=== PATIENT | female | born 1990 | race Caucasian/White ===

== ENCOUNTER 2018-01-09 19:41 | Emergency (ER) | payer BC, SELFPAY ==
[2018-01-09 19:41] VITALS: BP 131/66; PULSE 98; RESP 16; TEMP 37.1; O2SAT 99; BMI 23.8
--- NOTE | 2018-01-09 21:45 | US_ITS ---
STUDY: VENOUS DOPPLER ULTRASOUND - RIGHT LOWER EXTREMITY REASON FOR EXAM: Female, 27 years old. Pain. . TECHNIQUE: Ultrasound evaluation of the deep vein system to include raymundo-scale imaging and compression was performed. Raymundo-scale imaging and Doppler sonographic evaluation, including duplex spectral analysis and qualitative color flow sonography, was performed. COMPARISON: None. FINDINGS: Common Femoral Vein: Normal compression, spontaneity and augmentation. Normal color Doppler. Common Femoral Vein/Greater Saphenous Junction: Normal compression, spontaneity and augmentation. Normal color Doppler. Deep Femoral Vein: Normal compression, spontaneity and augmentation. Normal color Doppler. Femoral Proximal: Normal compression, spontaneity and augmentation. Normal color Doppler. Femoral Middle: Normal compression, spontaneity and augmentation. Normal color Doppler. Femoral Distal: Normal compression, spontaneity and augmentation. Normal color Doppler. Popliteal Vein: Normal compression, spontaneity and augmentation. Normal color Doppler. Posterior Tibial Vein: Normal compression, spontaneity and augmentation. Normal color Doppler. Peroneal Vein: Normal compression, spontaneity and augmentation. Normal color Doppler. There is no demonstrated deep venous thrombosis. US/Venous Duplex Imag/Limited/Uni IMPRESSION: Normal venous Doppler ultrasound of the lower extremity. Electronically Signed: Joce Hilton MD at 22:37 EST , Service support ,
--- NOTE | 2018-01-09 22:19 | ED.VISSUMM ---
- ER Visit Summary Date of Service: 01/09/18 Chief Complaint: Right knee pain History of Present Illness: The patient is a 27 F who is 25 weeks . This is her first baby. Patient took a car trip yesterday but states that she was up walking every hour and a half or so. She started to have some pain behind her right knee. No known trauma. Is not catching. No significant swelling. She notes some paresthesias in it. Dr. Jacobson her BUS TROLLEY AND TAXI INSTRUCTOR sent her to the ER for evaluation of DVT. Physical Examination: Afebrile vital signs are stable Gen: Well-nourished well-developed Head: Normocephalic atraumatic Eyes: Perrl EOMI ENT: TMs clear no rhinorrhea moist mucous membranes Neck: Supple no lymphadenopathy no JVD nontender CVS: Regular rate rhythm no murmurs normal S1-S2 Respiratory: No distress clear to auscultation bilaterally chest nontender Abdomen: Soft nontender nondistended normal bowel sounds no masses Back: Nontender Extremity: Nontender no edema Skin: Normal color no rash Neuro: alert orientated ?3 CN II-XII intact normal strength sensation reflexes gait cerebellar Psych: Normal affect normal mood Test Results: Duplex ultrasound was negative for DVT Emergency Department Course and Treatment: Reassurance was given. Patient to use Tylenol. Follow-up with BUS TROLLEY [employer] TAXI INSTRUCTOR as scheduled return if worsening Impression: 1. Right knee pain 2. Third trimester This note was generated with [employer] dictation software. It may contain incorrect words, spelling, and punctuation that were not noted in review of the chart prior to signing ED Disposition - Plan for ED Patient: Disposition: Home or Assisted Living Chief Complaint: Lower Extremity Injury Instructions: ED Knee Pain [facility] Referrals: Linette Jacobson MD [Primary Care Provider] - Keep [facility] appointment
[2018-01-09 22:29] VITALS: BP 132/78; PULSE 78; RESP 17; O2SAT 98
== END 2018-01-09 22:30 | disposition home or self-care (01) ==
PROVIDERS: Emergency Provider Emergency Medicine; Family Provider Obstetrics & Gynecology; PCP Obstetrics & Gynecology
DX: O26.892 Other specified pregnancy related conditions, second trimester (principal); M25.561 Pain in right knee; Z3A.25 25 weeks gestation of pregnancy
CPT/HCPCS: 93971; 99282

== ENCOUNTER → 2018-01-25 15:39 | Outpatient (CLI) | payer BC, SELFPAY ==
[2018-01-25 16:56] LABS: Absolute Lymphocyte Count 1.96 X10^3/ul (0.83-4.51); Absolute Neutrophil Count 8.1 X10^3/uL (2.0-7.7); Basophil# 0.03 X10^3/uL; Basophil% 0.3 % (0-1); Eosinophil# 0.18 X10^3/uL; Eosinophils% 1.6 % (0-5); Hematocrit 34.2 % (37-47); Hemoglobin 11.5 g/dl (12.0-15.0); Lymphocyte # 1.96 X10^3/ul (4.0); Lymphocyte % 17.1 % (19-41); Mean Corp Hgb Conc 33.6 g/gl (32-36); Mean Corpuscular Hgb 32.3 pg (27.0-32.0); Mean Corpuscular Volume 96.1 fL (81-99); Mean Platelet Vol. 9.6 fl (6.2-12.0); Monocyte# 1.06 X10^3/uL; Monocyte% 9.3 % (0-10); Neutrophil # 8.14 X10^3/uL (2.7-7.7); Neutrophil % 71.2 % (47-70); POSITIVE COUNT NO; POSITIVE DIFFERENTIAL NO; POSITIVE MORPHOLOGY NO; Platelet Count 271 K/mm3 (150-450); RBC Distribution Width CV 13.1 % (11.6-14.6); RBC Distribution Width SD 43.6 fl (35.1-43.9); Red Blood Count 3.56 M/mm3 (4.2-5.4); White Blood Count 11.4 K/mm3 (4.4-11.0)
[2018-01-25 16:59] LABS: Glucose Challenge Gest 1H 50g 104 mg/dL (70-140)
== END ==
PROVIDERS: Visit Provider Obstetrics & Gynecology
DX: Z34.90 Encounter for supervision of normal pregnancy, unspecified, unspecified trimester (principal)
CPT/HCPCS: 36415; 82950; 85025; 86850; 86900

== ENCOUNTER → 2018-01-25 18:56 | Outpatient (CLI) | payer BC, SELFPAY | PROVIDERS: Visit Provider Obstetrics & Gynecology | DX: Z34.90 Encounter for supervision of normal pregnancy, unspecified, unspecified trimester (principal) | CPT/HCPCS: 87086 ==

== ENCOUNTER 2018-03-06 10:29 | Emergency (ER) | payer BC, SELFPAY ==
[2018-03-06 10:30] VITALS: BP 115/69; PULSE 117; RESP 20; TEMP 37; O2SAT 96; BMI 25.0
--- NOTE | 2018-03-06 10:55 | VDLE_ITS ---
Reason For Study: pain Procedure LEFT Exam performed portable in ED. GSV is normal. The exam was diagnostic. CFV is compressible, spontaneous, phasic, A preliminary report was called and/or faxed competent, and demonstrates normal to Dr. Woodson. augmentation. FV is compressible, spontaneous, phasic, competent and demonstrates normal augmentation. POP V is compressible, spontaneous, phasic, competent and demonstrates normal augmentation. T/P Trunk is compressible. PTV is compressible. LT PerV is compressible. Interpretation Summary Deep veins of the left lower extremity are patent and compressible segmentally. There is no evidence of left lower extremity deep vein thrombosis. Valvular competence appears intact within the proximal deep venous system on the left . The left greater saphenous vein appears patent and compressible segmentally. Ordering Physician: Dean Woodson Performed By: Jovany Alberts RVT
--- NOTE | 2018-03-06 10:56 | ED.VISSUMM ---
- ER Visit Summary Date of Service: 03/06/18 Chief Complaint: Left behind the knee discomfort History of Present Illness: The patient is a 27 F history 3 weeks Ab0. Her due date is . Patient states she has had mild discomfort behind her left knee since last night. When it persisted she called her ELDER ASSISTANT Dr. Rashad Dick whose office Center in to have a ultrasound done. She has never had a DVT or PE before. She denies any chest pain or shortness of breath. She had a similar episode in her right leg 1-2 months ago and had a negative ultrasound of that leg at that time. She denies any calf pain or swelling. No hemoptysis. Physical Examination: Very well-appearing young female. Vital signs are stable afebrile. Pulse ox 97% on room air no signs of hypoxia. No distress. H EENT exam unremarkable neck nontender lungs clear to auscultation bilaterally. Heart regular rhythm no murmur abdomen is soft. Nontender tender. Normal bowel sounds. She does have a gravid uterus. Consistent with her dates. It is nontender. She is moving all 4 extremities. They are neurovascularly intact. She has very minimal tenderness behind her left knee along the hamstring tendon. There is no edema or cords or calf is nontender the left foot is neurovascularly intact. Right lower extremities unremarkable both lower legs are the same size. No edema. Normal range of motion. Otherwise exam unremarkable. Test Results: Noninvasive study of the left leg shows no DVT. Emergency Department Course and Treatment: Repeat exam patient is doing well at 1130. She denied discussed her negative test results she will be discharged to home. Treatment Plan: Ice to the area. Tylenol for pain. Disposition: Discharge Impression: Lower extremity pain by the knee secondary to mild tendinitis Third trimester This note was generated with [employer] dictation software. It may contain incorrect words, spelling, and punctuation that were not noted in review of the chart prior to signing ED Disposition - Plan for ED Patient: Chief Complaint: Lower Extremity Injury Referrals: Linette Jacobson MD [Primary Care Provider] -
--- NOTE | 2018-03-06 10:59 | ED.DCSUM_ITS ---
- ER Visit Summary Date of Service: 03/06/18 Chief Complaint: Left behind the knee discomfort History of Present Illness: The patient is a 27 F history 3 weeks Ab0. Her due date is . Patient states she has had mild discomfort behind her left knee since last night. When it persisted she called her OBJECTIVE C DEVELOPER Dr. Rashad Dick whose office Center in to have a ultrasound done. She has never had a DVT or PE before. She denies any chest pain or shortness of breath. She had a similar episode in her right leg 1-2 months ago and had a negative ultrasound of that leg at that time. She denies any calf pain or swelling. No hemoptysis. Physical Examination: Very well-appearing young female. Vital signs are stable afebrile. Pulse ox 97% on room air no signs of hypoxia. No distress. H EENT exam unremarkable neck nontender lungs clear to auscultation bilaterally. Heart regular rhythm no murmur abdomen is soft. Nontender tender. Normal bowel sounds. She does have a gravid uterus. Consistent with her dates. It is nontender. She is moving all 4 extremities. They are neurovascularly intact. She has very minimal tenderness behind her left knee along the hamstring tendon. There is no edema or cords or calf is nontender the left foot is neurovascularly intact. Right lower extremities unremarkable both lower legs are the same size. No edema. Normal range of motion. Otherwise exam unremarkable. Test Results: Noninvasive study of the left leg shows no DVT. Emergency Department Course and Treatment: Repeat exam patient is doing well at 1130. She denied discussed her negative test results she will be discharged to home. Treatment Plan: Ice to the area. Tylenol for pain. Disposition: Discharge Impression: Lower extremity pain by the knee secondary to mild tendinitis Third trimester This note was generated with [employer] dictation software. It may contain incorrect words, spelling, and punctuation that were not noted in review of the chart prior to signing ED Disposition - Plan for ED Patient: Chief Complaint: Lower Extremity Injury Referrals: Linette Jacobson MD [Primary Care Provider] -
--- NOTE | 2018-03-06 11:31 | ED.DEP ---
ED Disposition - Plan for ED Patient: Disposition: Home or Assisted Living Chief Complaint: Lower Extremity Injury Referrals: Linette Jacobson MD [Primary Care Provider] - As Needed Additional Instructions: No blood clots seen on ultrasound. Clinically and exam this is consistent with a tendinitis or strain of the muscle basically treated with ice, Tylenol and limited Motrin. Next Should progressively improve over the next several days to a week. Follow-up with your doctor as needed.
== END 2018-03-06 11:38 | disposition home or self-care (01) ==
PROVIDERS: Emergency Provider Emergency Medicine; Family Provider Obstetrics & Gynecology; PCP Obstetrics & Gynecology
DX: O26.893 Other specified pregnancy related conditions, third trimester (principal); M76.892 Other specified enthesopathies of left lower limb, excluding foot; M79.605 Pain in left leg; Z3A.33 33 weeks gestation of pregnancy
CPT/HCPCS: 93971; 99282

== ENCOUNTER → 2018-03-13 16:23 | Outpatient (CLI) | payer BC, SELFPAY | PROVIDERS: Family Provider Obstetrics & Gynecology; PCP Obstetrics & Gynecology; Visit Provider Nurse Practitioner Women's Health | DX: Z34.90 Encounter for supervision of normal pregnancy, unspecified, unspecified trimester (principal) | CPT/HCPCS: 87086 ==

== ENCOUNTER → 2018-04-03 17:38 | Outpatient (CLI) | payer BC, SELFPAY ==
[2018-04-03 20:21] LABS: Group B Strep DNA By PCR Negative (Negative); Internal Control PASS; Probe Check PASS; Specimen Processing Control PASS
== END ==
PROVIDERS: Family Provider Obstetrics & Gynecology; PCP Obstetrics & Gynecology; Visit Provider Obstetrics & Gynecology
DX: Z34.02 Encounter for supervision of normal first pregnancy, second trimester (principal)
CPT/HCPCS: 87081; 87653

== ENCOUNTER 2018-05-01 01:05 | Inpatient (IN) | payer BC, SELFPAY ==
[2018-04-30 22:00] VITALS: BMI 26.4
[2018-05-01] MEDS: Lactated Ringers 1,000 ML 50 ML IV ×4 (01:10→10:20)
[2018-05-01 01:42] LABS: Hematocrit 39.4 % (37-47); Mean Corp Hgb Conc 35.5 g/gl (32-36); Mean Corpuscular Hgb 32.9 pg (27.0-32.0); Mean Corpuscular Volume 92.5 fL (81-99); Mean Platelet Vol. 10.3 fl (6.2-12.0); Platelet Count 271 K/mm3 (150-450); Red Blood Count 4.26 M/mm3 (4.2-5.4); White Blood Count 16.2 K/mm3 (4.4-11.0)
[2018-05-01 01:43] LABS: Scan Indicated on CBC? Y/N NO
[2018-05-01] MEDS: fentaNYL-bupivacaine (epidural) 100 ML BAG EPIDURAL ×2 (03:36→08:00)
--- NOTE | 2018-05-01 04:48 | PCM.HP.OB ---
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 Allergies amoxicillin Allergy (Mild, Verified 04/30/18 23:05) Rash Home Medications: Home Medications calcium citrate 200 mg (950 mg) tablet 500 mg PO BID tab 12/28/17 folic acid 800 mcg tablet 800 mcg PO QDAY 12/28/17 omega-3 fatty acids 1,000 mg capsule 1,000 mg PO QDAY 12/28/17 vitamin,calcium,bqhpflzb-fidh-xyvbd acid tablet 1 tab PO QDAY 12/28/17 Ferrous Sulfate 325 mg PO DAILY@0800 04/30/18 Smoking Status: Never smoker Alcohol: None Number of Fetus(es): 1 Heart Tracins moderate variability reactive no decels TOCO Analysis: q2-3 History Past Pregnancies: Past Pregnancies Delivery Date Name GA/Weeks Outcome Route Weight Gender Labor Length Anesthesia Delivery Location Provider FOB Labs: Mom's Labs & Results 05/01/18 05/01/18 01:10 01:10 WBC 16.2 H RBC 4.26 Hgb 14.0 Hct 39.4 MCV 92.5 MCH 32.9 H MCHC 35.5 RDW 13.0 RDW Differential 43.0 Plt Count 271 MPV 10.3 Blood Type A POSITIVE Antibody Screen NEGATIVE Course Did the patient receive Yes care? Labs Blood Type: A RH: POSITIVE RPR/VDRL/Syphilis Nonreactive Rubella status Immune HbSAg Negative Date Done: 10/06/17 Chlamydia Negative Gonorrhea Negative HIV/AIDS Non-Reactive Group B Strep: Negative Current Obstetrical History Gestational Diabetes No Incompetent Cervix No Infertility No IUGR No Macrosomia No Hypertension/Pre-eclampsia No Placenta Previa/Abruption No PTL/PROM No Uterine anomaly No Oligohydramnios No Polyhydramnios No Multiple gestation No Past Medical History Asthma No Diabetes No Hypertension No Heart disease No Mitral valve prolapse No Neurologic/Seizure disorder/ No Migraines Kidney disease No Liver disease No Varicosities No Clotting disorders/Hx of DVT No Thyroid Dysfunction No Other medical diseases No Psychiatric disorders Yes: hx of depression Major trauma No Abnormal PAP smear No Sleep apnea No Mammogram in the last 2 years Yes: for abnormal fatty cyst in 2016 Enter DETAILS of medical past hx of eating disorder history Social History Marital Status: Alleged father Edenilson Hx Smoking No Smoking Status Never smoker Expected Infant Delivery Method: Spontaneous Vaginal Review of Systems Constitutional: Denies: Fever, Malaise Eyes: Denies: Blurred vision, Vision Change HEENT: Denies: Head Aches, Visual Changes Cardiovascular: Denies: Chest Pain, Palpitations Respiratory: Denies: Cough, Shortness of Breath, Wheezing Gastrointestinal: Denies: Abdominal Pain, Diarrhea, Nausea, Vomiting Genitourinary: Denies: Dysuria, Hematuria Musculoskeletal: Denies: Joint Pain, Muscle pain Skin: Denies: Lesions, Rash Neurological: Denies: Blurred vision, Focal weakness, Headaches Psychiatric: Denies: Anxiety, Depression Endocrine: Denies: Heat/ Cold Intolerance Hematologic/ Lymphatic: Denies: Easy Bruising, Easy Bleeding Physical Exam General: Alert, Cooperative, No apparent distress HEENT: Atraumatic, Normocephalic. Negative for: Thyromegaly, Lymphadenopathy Cardiovascular: Regular rate Lungs: Normal air movement Abdomen: Soft, Non Tender, Gravid Neurological: Deep Tendon Reflexes 2+/4 and Symmetrical, Neuro grossly intact. Negative for: Clonus METAL FABRICATING SUPERVISOR: Normal external genitalia. Negative for: Vulvar lesions Estimated gestational size: Appropriate for gestational size Presentation: Cephalic Cervix Dilation (cm): 3 Station: -1 Effacement (%): 90 Assessment/Plan All Active Problems (Last Reviewed 04/30/18 @ 16:18 by Nereida Jackson) Active labor at term (Acute) Supervision of normal (Acute) This is a 27 year-old, at 40 weeks gestational age presents IAL s/p epi
[2018-05-01] MEDS: Oxytocin 30 units/NS 500 ml 30 UNITS/500 ML IV.SOLN 334 UNITS IV (13:34)
[2018-05-01] MEDS: Oxytocin 30 units/NS 500 ml 30 UNITS/500 ML IV.SOLN 167 UNITS IV (14:04)
[2018-05-01] MEDS: Acetaminophen 325 MG Tablet PO (15:57)
[2018-05-01 16:00] VITALS: BP 101/63; PULSE 129; RESP 18; TEMP 37.3; O2SAT 98
[2018-05-01] MEDS: Lactated Ringers 1,000 ML 999 ML IV (17:55)
[2018-05-01] MEDS: 0.9% Saline Lock 10 ML Syringe IV ×3 (17:56→21:15)
--- NOTE | 2018-05-01 18:03 | EKG12_ITS ---
Test Reason : INCR HR Blood Pressure : / mmHG Vent. Rate : 136 BPM Atrial Rate : 136 BPM P-R Int : 128 ms QRS Dur : 090 ms QT Int : 288 ms P-R-T Axes : 067 037 042 degrees QTc Int : 433 ms Sinus tachycardia Otherwise normal ECG No previous ECGs available Confirmed by ASHVIN GAFFNEY, JUAN ([id number]), market editor NOÉ HORTA ([id number]) on 05/10/2018 3:57:39 PM Referred By: Linette Jacobson Confirmed By:JUAN LOCK MD
[2018-05-01 18:16] LABS: Hematocrit 34.4 % (37-47); Hemoglobin 11.6 g/dl (12.0-15.0)
[2018-05-01 19:00] VITALS: PULSE 121; RESP 18; O2SAT 98
[2018-05-01 19:57] VITALS: BP 124/65; PULSE 130; RESP 18; TEMP 36.4
[2018-05-01] MEDS: Naproxen 250 MG Tablet PO (21:09)
[2018-05-01] MEDS: Lactated Ringers 500 ML 999 ML IV (21:15)
[2018-05-01] MEDS: Enoxaparin 40 MG/0.4 ML Syringe SC (21:17)
[2018-05-02] VITALS: BP 97/57; PULSE 100; RESP 16; TEMP 37.2; O2SAT 95
[2018-05-02] MEDS: Acetaminophen 500 MG Tablet 1000 MG PO ×2 (00:26→13:50)
[2018-05-02 04:15] VITALS: BP 88/48; PULSE 82; RESP 16; TEMP 36.8; O2SAT 98
[2018-05-02] MEDS: Naproxen 250 MG Tablet PO ×2 (06:36→16:37)
[2018-05-02 07:51] VITALS: BP 86/46; PULSE 92; RESP 18; TEMP 36.7
--- NOTE | 2018-05-02 08:00 | VDLE_ITS ---
Reason For Study: LEG PAIN Procedure LEFT Exam performed portable in patient room. GSV is normal. A preliminary report was called and/or faxed CFV is compressible, spontaneous, phasic, to WP nurse. competent, and demonstrates normal augmentation. FV is compressible, spontaneous, phasic, competent and demonstrates normal augmentation. POP V is compressible, spontaneous, phasic, competent and demonstrates normal augmentation. T/P Trunk is compressible. PTV is compressible. LT PerV is compressible. Interpretation Summary There is no evidence of left lower extremity deep vein thrombosis. Left greater saphenous vein appears patent and compressible segmentally. Ordering Physician: Linette Jacobson Referring Physician: Linette Jacobson [facility] Performed By: Breanna Pierson RVT
--- NOTE | 2018-05-02 09:56 | PCM.PN.OB ---
Patient Problems: Active and Suspected Problems (Last Reviewed 04/30/18 @ 16:18 by Nereida Jackson) Active labor at term (Acute) Subjective: No CP, SOB. Some discomfort, control with Aleve - Physical Exam General: Alert, Oriented x3 Abdomen: Soft, Non Tender, - - FF below U Vital Signs Temp Pulse Resp BP Pulse Ox 98.0 F 92 18 86/46 L 98 05/02/18 07:51 05/02/18 07:51 05/02/18 07:51 05/02/18 07:51 05/02/18 04:15 Oxygen Delivery Method Room Air Weight: 174 lb 2.643 oz Body Mass Index (BMI) 26.4 Intake and Output for Last 24 Hours 04/30/18 05/01/18 05/02/18 23:59 23:59 23:59 Intake Total 7061 / 7061 Output Total 2450 / 2450 1000 / 1000 Balance 4611 / 4611 -1000 / -1000 Laboratory Tests Past 24 Hrs 05/01/18 18:03 Hgb 11.6 L Hct 34.4 L Medical Necessity - Tobacco Use Smoking Status: Never smoker Assessment/Plan All Active Problems (Last Reviewed 04/30/18 @ 16:18 by Nereida Jackson) Active labor at term (Acute) Supervision of normal (Acute) PPD #1: routine care. OTC meds for discomfort.
[2018-05-02 13:30] VITALS: BP 101/71; PULSE 89; RESP 20; TEMP 36.8; O2SAT 98
[2018-05-02] MEDS: Prenatal Vits Tablet 1 TABLET PO (13:51)
[2018-05-02 21:12] VITALS: BP 109/73; PULSE 89; RESP 16; TEMP 37.6; O2SAT 98
[2018-05-03] MEDS: Naproxen 250 MG Tablet PO ×2 (00:28→11:55)
[2018-05-03 01:20] VITALS: BP 107/71; PULSE 76; RESP 16; TEMP 37.6; O2SAT 98
[2018-05-03 07:56] VITALS: BP 100/65; PULSE 101; RESP 18; TEMP 36.9; O2SAT 95
--- NOTE | 2018-05-03 08:11 | PCM.PN.OB ---
Patient Problems: Active and Suspected Problems (Last Reviewed 04/30/18 @ 16:18 by Nereida Jackson) Active labor at term (Acute) Subjective: PPD #2 No CP, SOB, nausea. Tearful, states very stressed and exhausted. History of PMDD and depression, requesting restart zoloft. Having difficulty with . - Physical Exam General: Alert, Oriented x3 Abdomen: Soft, Non Tender - FF below U Vital Signs Temp Pulse Resp BP Pulse Ox 98.4 F 101 H 18 100/65 95 05/03/18 07:56 05/03/18 07:56 05/03/18 07:56 05/03/18 07:56 05/03/18 07:56 Oxygen Delivery Method Room Air Weight: 174 lb 2.643 oz Body Mass Index (BMI) 26.4 Intake and Output for Last 24 Hours 05/01/18 05/02/18 05/03/18 23:59 23:59 23:59 Intake Total 7061 / 7061 Output Total 2450 / 2450 1000 / 1000 Balance 4611 / 4611 -1000 / -1000 Medical Necessity - Tobacco Use Smoking Status: Never smoker Assessment/Plan All Active Problems (Last Reviewed 04/30/18 @ 16:18 by Nereida Jackson) Active labor at term (Acute) Supervision of normal (Acute) PPD #2: Discussed restart zoloft, Rx sent to [facility] pharm. Otherwise routine care. Prefers to discuss contraception at 6 week visit. Plans home today.
--- NOTE | 2018-05-03 08:14 | PN.OBGYN_ITS ---
Patient Problems: Active and Suspected Problems (Last Reviewed 04/30/18 @ 16:18 by Nereida Jackson) Active labor at term (Acute) Subjective: PPD #2 No CP, SOB, nausea. Tearful, states very stressed and exhausted. History of PMDD and depression, requesting restart zoloft. Having difficulty with . - Physical Exam General: Alert, Oriented x3 Abdomen: Soft, Non Tender - FF below U Vital Signs Temp Pulse Resp BP Pulse Ox 98.4 F 101 H 18 100/65 95 05/03/18 07:56 05/03/18 07:56 05/03/18 07:56 05/03/18 07:56 05/03/18 07:56 Oxygen Delivery Method Room Air Weight: 174 lb 2.643 oz Body Mass Index (BMI) 26.4 Intake and Output for Last 24 Hours 05/01/18 05/02/18 05/03/18 23:59 23:59 23:59 Intake Total 7061 / 7061 Output Total 2450 / 2450 1000 / 1000 Balance 4611 / 4611 -1000 / -1000 Medical Necessity - Tobacco Use Smoking Status: Never smoker Assessment/Plan All Active Problems (Last Reviewed 04/30/18 @ 16:18 by Nereida Jackson) Active labor at term (Acute) Supervision of normal (Acute) PPD #2: Discussed restart zoloft, Rx sent to [facility] pharm. Otherwise routine care. Prefers to discuss contraception at 6 week visit. Plans home today.
--- NOTE | 2018-05-03 08:15 | DCINST_ITS ---
Additional Instructions: If you experience any of the following, contact your healthcare provider. * Bleeding that soaks a pad every hour for 2 hours * Fever 100.4 or higher * Unrelieved incision or abdominal pain * Swelling, redness, discharge or bleeding from your incision or episiotomy site * Your incision begins to separate * Problems urinating (including inability to urinate or burning while urinating) . * Visual changes * Severe headache * Flu-like symptoms * Pain or redness in one of both of your breasts * Pain, warmth, tenderness or swelling in your legs, especially the calf area * Frequent nausea and vomiting * Symptoms of depression or anxiety If you experience any of the following, call 911 or go to the nearest Emergency Room. * Chest pain * Problems breathing * Seizure activity * Partial or complete paralysis of a body part, slurred speech, weakness or drooping of the face, or a sudden inability to walk or hold your balance Allergies/Adverse Reactions: Allergies amoxicillin Allergy (Mild, Verified 04/30/18 23:05) Rash Medications to take at Discharge calcium citrate 200 mg (950 mg) tablet 500 mg PO BID tab 12/28/17 folic acid 800 mcg tablet 800 mcg PO QDAY 12/28/17 omega-3 fatty acids 1,000 mg capsule 1,000 mg PO QDAY 12/28/17 vitamin,calcium,aduitgfo-jjwh-kifrg acid tablet 1 tab PO QDAY 12/28/17 Ferrous Sulfate 325 mg PO DAILY@0800 04/30/18 Sertraline HCl [Zoloft] 25 mg PO DAILY #30 tab 05/03/18 The following prescriptions were given: Sertraline HCl [Zoloft] 25 mg PO DAILY #30 tab
--- NOTE | 2018-05-03 08:15 | PCM.DCVAG ---
Additional Instructions: If you experience any of the following, contact your healthcare provider. Bleeding that soaks a pad every hour for 2 hours Fever 100.4 or higher Unrelieved incision or abdominal pain Swelling, redness, discharge or bleeding from your incision or episiotomy site Your incision begins to separate Problems urinating (including inability to urinate or burning while urinating). Visual changes Severe headache Flu-like symptoms Pain or redness in one of both of your breasts Pain, warmth, tenderness or swelling in your legs, especially the calf area Frequent nausea and vomiting Symptoms of depression or anxiety If you experience any of the following, call 911 or go to the nearest Emergency Room. Chest pain Problems breathing Seizure activity Partial or complete paralysis of a body part, slurred speech, weakness or drooping of the face, or a sudden inability to walk or hold your balance Allergies/Adverse Reactions: Allergies amoxicillin Allergy (Mild, Verified 04/30/18 23:05) Rash Medications to take at Discharge calcium citrate 200 mg (950 mg) tablet 500 mg PO BID tab 12/28/17 folic acid 800 mcg tablet 800 mcg PO QDAY 12/28/17 omega-3 fatty acids 1,000 mg capsule 1,000 mg PO QDAY 12/28/17 vitamin,calcium,bfwfowck-wnqp-enxsv acid tablet 1 tab PO QDAY 12/28/17 Ferrous Sulfate 325 mg PO DAILY@0800 04/30/18 Sertraline HCl [Zoloft] 25 mg PO DAILY #30 tab 05/03/18 The following prescriptions were given: Sertraline HCl [Zoloft] 25 mg PO DAILY #30 tab
[2018-05-03] MEDS: Senna/Docusate Sodium 1 Tablet PO (08:47)
[2018-05-03] MEDS: Prenatal Vits Tablet 1 TABLET PO (08:48)
--- NOTE | 2018-05-03 12:53 | PCM.OB.VAG ---
- Problem List (1) Supervision of normal Status: Acute Qualifiers: Normal : normal first Trimester: third trimester Qualified Code(s): Z34.03 - Encounter for supervision of normal first , third trimester Comment: PNR MARQUIS 04/27/18 gender surprise Edenilson (2) Active labor at term Status: Acute Vaginal Delivery Maternal Presentation: Active Labor active labor 40 weeks 4 days Amniotic Membrane Rupture Type: Artificial Amniotic Fluid Description: Clear Final MARQUIS: 04/27/18 Gestational age: 40 Weeks and 4 Days Date of Procedure: 05/01/18 Pre-Operative Diagnosis: In active labor Post-Operative Diagnosis: same Surgery/ Procedure Performed: Spontaneous Vaginal Delivery Type of Anesthesia: Epidural Description of Procedure: Patient began pushing and delivered the head in the MARYJANE presentation. The head was delivered atraumatically . The anterior and posterior shoulders delivered without complication followed by the rest of the infant and the infant was placed on the maternal abdomen. Delayed cord clamping was employed for approximately 60 seconds. Cord was clamped and cut and gentle traction was applied to the cord and the placenta delivered spontaneously immediately following it was noted to be intact with three-vessel cord. The perineum and vagina were inspected and noted to have a second-degree laceration that was repaired in the usual fashion with 3-0 Vicryl Rapide. EBL was 500 cc. Patient and infant tolerated delivery well. Presentation: MARYJANE Placental Delivery Description: Spontaneous Placenta Disposition: [facility] Cord Vessel Description: 3 Vessels Cord Entanglement: None Estimated Blood Loss: 500 Infant A gender: Female Laceration: Perineal Extension/lac, 2nd degree Medications given after delivery: IV Pitocin Complications: None
[2018-05-03 14:30] VITALS: BP 110/67; PULSE 83; RESP 16; TEMP 36.8; O2SAT 98
== END 2018-05-03 14:30 | disposition home or self-care (01) | DRG 775 ==
LOC: WP 13:38 → WPOUT 05-02 10:22
PROVIDERS: Admitting Provider Obstetrics & Gynecology; Visit Provider Obstetrics & Gynecology
DX: O99.344 Other mental disorders complicating childbirth (principal); F32.9 Major depressive disorder, single episode, unspecified; O70.1 Second degree perineal laceration during delivery; Z3A.40 40 weeks gestation of pregnancy; Z37.0 Single live birth
CPT/HCPCS: 59025; 59050; 85014; 85018; 85027; 86850; 86900; 93005; 93971; 99218; J7120; A4216; G0378

== ENCOUNTER → 2018-09-10 15:15 | Outpatient (CLI) | payer BC, SELFPAY ==
--- NOTE | 2018-09-10 15:18 | RAD_ITS ---
STUDY: X-RAY - CERVICAL SPINE REASON FOR EXAM: Female, 28 years old. Numbness with tingling in shoulders. Cervical spine pain for years. TECHNIQUE: 6 view(s) of the cervical spine were obtained. COMPARISON: None FINDINGS: Normal anterior atlantoaxial articulation. Normal odontoid process. Normal cervical lordosis. Normal vertebral bodies and endplates. Normal disc space heights. Normal visualized intervertebral neuroforamina. The soft tissue structures are unremarkable. Rudimentary cervical ribs. RAD/Cerv Spine 4 or 5 Views IMPRESSION: Normal x-ray examination of the visualized cervical spine. Electronically Signed: Luis Felipe Quijano MD at 8:04 EST , Service support ,
== END ==
PROVIDERS: Family Provider Internal Medicine; PCP Internal Medicine; Referring Provider Internal Medicine; Visit Provider Internal Medicine
DX: R20.2 Paresthesia of skin (principal); R20.0 Anesthesia of skin
CPT/HCPCS: 72050

== ENCOUNTER → 2018-09-17 13:40 | Outpatient (CLI) | payer BC, SELFPAY ==
--- NOTE | 2018-09-17 13:43 | BI_ITS ---
MAMMOGRAPHY - BILATERAL DIAGNOSTIC REASON FOR EXAM: Female, 28 years old. History of bilateral nonspecific breast lumps. No palpable abnormality at this time. The patient is currently breast-feeding. PERTINENT HISTORY: Non-contributory. TECHNIQUE: Digital bilateral breast isaac (3D mammographic acquisition) in the CC and MLO projections. 2-D mediolateral oblique (MLO) and craniocaudad (CC) views of both breasts were obtained. CAD: Full Field Digital Mammography with Computer Added Detection was performed. COMPARISON: None. Baseline examination. FINDINGS: Breast Composition: The breasts are extremely dense, which lowers the sensitivity of mammography. There are no dominant masses or suspicious calcifications. No other significant abnormalities are identified. BI/DIAG MAMM W/CAD, BILAT IMPRESSION: Negative diagnostic mammogram. Yearly followup mammogram recommended. (A) ASSESSMENT CATEGORY: BIRADS Category 1: Negative. A letter regarding these results will be sent to the patient by the facility within 30 days. Approximately 10% of breast cancers are not detected by mammography. A normal mammogram should not delay biopsy of a clinically suspicious abnormality. Electronically Signed: Viral Cameron MD at 14:34 EST Tel [phone], Service support ,
== END ==
PROVIDERS: Family Provider Internal Medicine; PCP Internal Medicine; Referring Provider Obstetrics & Gynecology; Visit Provider Obstetrics & Gynecology
DX: D24.1 Benign neoplasm of right breast (principal)
CPT/HCPCS: 77062; 77066; G0279

== ENCOUNTER → 2020-03-06 | Outpatient (CLI) | payer OTHER, SELFPAY ==
[2020-03-06 08:43] VITALS: BMI 22.0
== END | disposition home or self-care (01) ==
LOC: LABSPEC 10:34
PROVIDERS: Referring Provider Obstetrics & Gynecology; Visit Provider Obstetrics & Gynecology
DX: Z34.80 Encounter for supervision of other normal pregnancy, unspecified trimester (principal)
CPT/HCPCS: 87081

== ENCOUNTER 2020-04-01 17:24 | Inpatient (IN) | payer OTHER, SELFPAY ==
[2020-03-13 09:03] VITALS: BMI 22.0
[2020-04-01] VITALS (24 sets, daily range): BP systolic 96–167; BP diastolic 54–129; PULSE 95–160; TEMP 36.9–37.6; O2SAT 93–100; BMI 22.0; BMI 26.6
[2020-04-01 15:50] LABS: Absolute Lymphocyte Count 1.65 X10^3/uL (0.83-4.51); Absolute Neutrophil Count 8.1 X10^3/uL (2.0-7.7); Basophil# 0.03 X10^3/uL; Basophil% 0.3 % (0-1); Eosinophil# 0.15 X10^3/uL; Eosinophils% 1.4 % (0-5); Hematocrit 39.1 % (37-47); Hemoglobin 13.3 g/dL (12.0-15.0); Lymphocyte # 1.65 X10^3/ul (4.0); Mean Corpuscular Hgb 32.7 pg (27.0-32.0); Mean Corpuscular Volume 96.1 fL (81-99); Mean Platelet Vol. 10.5 fl (6.2-12.0); Monocyte# 1.04 X10^3/uL; Monocyte% 9.5 % (0-10); NRBC Flagged by Analyzer 0 % (0-5); Neutrophil # 8.07 X10^3/uL (2.7-7.7); Neutrophil % 73.3 % (47-70); Platelet Count 223 K/mm3 (150-450); RBC Distribution Width CV 13.5 % (11.6-14.6); RBC Distribution Width SD 47.2 fl (35.1-43.9); Red Blood Count 4.07 M/mm3 (4.2-5.4)
[2020-04-01] MEDS: Lactated Ringers 1,000 ML 50 ML IV (17:53)
--- NOTE | 2020-04-01 19:46 | HP.PCM_ITS ---
- Problem List (1) Status: Acute Qualifiers: Comment: declined genetic, carrier, and ntd screening. late REBECCA from [place] (2) Supervision of other normal Status: Acute Comment: PRR MARQUIS 04/02/2020 girl PC: Jenifer SPouse: Edenilson (urine culture done 09/10/2020- negative) History and Physical Date of Admission: 04/01/20 Intake Vital Signs 04/01/20 Height 5 ft 8 in 04/01/20 Weight: 174 lb 04/01/20 BMI 26.4 04/01/20 BP 118/68 Intake Visit Reasons: 40 wk Frame Assembler Required: No Is patient in pain?: No Allergies amoxicillin Allergy (Mild, Verified 04/01/20 12:52) Rash Medications prenat.vits,fritz,[id number] 1 tab PO QDAY 12/28/17 [History Confirmed 04/01/20] sertraline 50 mg tablet 50 mg PO DAILY #30 tab 03/06/20 [Rx Confirmed 04/01/20] Last Menstral Period: 07/21/18 Zika: Zika virus screening: Negative : No PFSH PFSH Medical History Depression (Acute) Eating disorder (Acute) Surgical History History of nasal surgery (Acute) hymenectomy (Acute) Family History Father Depression Alcohol abuse Aunt Bleeding disorder Grandfather Colon cancer Social History (Updated 04/01/20 @ 13:[address] Linette Jacobson MD) Smoking Status: Never smoker alcohol intake: never substance use type: does not use caffeine: No seatbelt use: always do you feel safe at home: Yes additional social history: Edwin Patient works at [employer] Pre[employer] History 2 Elective abortions Hx Para 1 Spontaneous abortions Hx # Term Pregnancies 1 Ectopic pregnancies Hx # Pregnancies Multiple births # of living children 1 Past Pregnancies Del. Date Name GA/Weeks Outcome Route Bth Weight Infant Gen Labor Lgth Anesthesia Del Locatn Provider FOB 05/01/18 Jenifer 40 live - full term 8lbs 3oz Female 1 8 hours epidural [facility] Edenilson Delivery Date: 05/01/18 On 06/13/18 @ 10:55 Donna Croft No issues during or delivery. HPI 40 wk: Details: RITA VILLEGAS is a 29 year old G2, P1 at 39 weeks 6 days presents in active labor 5 cm. Patient has had an uncomplicated with no issues. She complains of contractions increasing over the last couple of hours denies any vaginal bleeding or loss of fluid admits good movement. OB Visit MARQUIS Calculator Estimated Delivery Date Method Current WG Current Estimate 04/02/20 Manual 39w 6d Expected Delivery Route/Plan Labor Preferences- labor support person: [] pain management options preferred: [] cut cord/dad catch: [] : [] PP control planned: [] discussed possible routes of delivery and associated risks: [] special requests: []n Specific Issue/Plans flu vaccine: [] tdap vaccine: [] rhogam: [] LARC form signed: [] Problem list reviewed and updated with the most current plan of care details and appropriate orders placed. Relevant counseling for the gestational age provided. Continue routine care and follow up unless otherwise noted in visit notes/problem list details Initial Weight: Not Recorded Date EGA Weight BP Urine Prot Glucose FHR FuHt Pres Dilation Effaced St Visit Note 03/06/20 36w 1d 174 lb 100/60 Negative Negative 150 SM- no vb lof good fm no regular ctx, questions answered and support given about , SM- no vb lof good fm no regular ctx, questions answered and support given about , discussed 03/13/20 37w 1d 176 lb 122/64 Negative Negative 145 37 SM- no vb lof good fm no regular ctx 03/20/20 38w 1d 177 lb 102/66 Negative Negative 135 38 Cephalic 2.5 SM-no vb lof good fm no regular ctx 03/27/20 39w 1d 174 lb 122/80 Negative Negative 140 39 Cephalic 3 60 SM- no vb lof good fm no regular ctx 04/01/20 39w 6d 174 lb 118/68 Negative Negative 140 39 Cephalic 4 70 -1 SM- irregular ctx no vb l of good fm ACOG First Trimester First Trimester: Second Trimester Second Trimester: Signs and Symptoms of Labor, Selecting a care provider, Reproductive Life Planning, Care Planning, Tobacco Cessation, Depression/Anxiety and Intimate Partner Violence Third Trimester Third Trimester: Pain Management Plans, Labor support person(s), Immediate Larc, Movement Monitoring and Feeding Yes ; discussed Trial of Labor after Counseling or discussed Circumcision preference Diagnostics Diagnostics Diagnostics Pap Smear Negative 09/10/19 Details: HIV: Urine Culture: Sequential Screen: NIPT Screen: ROS Const Reports system reviewed and no additional complaints, except as docu Card Reports system reviewed and no additional complaints, except as docu Resp Reports system reviewed and no additional complaints, except as docu GI Reports system reviewed and no additional complaints, except as docu, Reports nausea Reports system reviewed and no additional complaints, except as docu Musc Reports system reviewed and no additional complaints, except as docu Exam Const General: cooperative, healthy appearing, comfortable, anxious HENMT Head: normal to inspection Nose: external nose normal Face and sinus: normal facial exam Neck Neck: normal visual inspection, full ROM, no lymphadenopathy Thyroid: thyroid normal Chest Chest palpation & inspection: normal inspection of the chest Resp Effort & Inspection: normal respiratory effort GI Inspection: normal to inspection Palpation: soft, other (gravid uterus) Other: infant vertex and appropriate size for gestational age Other: Cervical Exam: Extrem General: pedal edema Results POC Urinalysis 2 Dip (Clinic) Office Urine Glucose Negative Last Edit by Andreea Amanda on 04/01/20 12:57 Office Urine Protein Negative Last Edit by Andreea Amanda on 04/01/20 12:57 Assessment & Plan Problems 1. 39 weeks gestation of Z3A.39 2. Supervision of other normal Z34.80 29-year-old G2, P1 at 39 weeks 6 days presents in active labor Patient presents IAL, plan expectant management for , AROM clear fluid Pain management: Epidural if desired. GBS negative. Management of any complications: [none] I have reviewed the [facility] and made any clinically relevant updates. Orders Orders: POC Urinalysis 2 Dip (Clinic) Today Coding Level of Care Code OB Routine Diagnoses 39 weeks gestation of Z3A.39 ??Weeks of gestation: 39 weeks Supervision of other normal Z34.80
[2020-04-01] MEDS: Lactated Ringers 500 ML 999 ML IV ×2 (21:18→22:25)
[2020-04-01] MEDS: fentaNYL-bupivacaine (epidural) 100 ML BAG EPIDURAL (22:00)
[2020-04-01] MEDS: Oxytocin 30 units/NS 500 ml 30 UNITS/500 ML IV.SOLN 334 UNITS IV (23:07)
--- NOTE | 2020-04-01 23:29 | PCM.OPRPT ---
Problem List (1) Status: Acute Qualifiers: Comment: declined genetic, carrier, and ntd screening. late REBECCA from [place] (2) Supervision of other normal Status: Acute Comment: PRR MARQUIS 04/02/2020 girl PC: Jenifer SPouse: Edenilson (urine culture done 09/10/2020- negative) Vaginal Delivery Maternal Presentation: Active Labor ial 39w6d Amniotic Membrane Rupture Type: Artificial Amniotic Fluid Description: Clear Final MARQUIS: 04/02/20 Gestational age: 39 Weeks and 6 Days Date of Procedure: 04/01/20 Pre-Operative Diagnosis: ial Post-Operative Diagnosis: same Surgery/ Procedure Performed: Spontaneous Vaginal Delivery Type of Anesthesia: Epidural Description of Procedure: Patient began pushing and delivered the head in the [MARYJANE] presentation. The head was delivered atraumatically. The anterior and posterior shoulders delivered without complication followed by the rest of the and the was placed on the maternal abdomen. Delayed cord clamping was employed for approximately 60 seconds. Cord was clamped and cut and gentle traction was applied to the cord and the placenta delivered spontaneously immediately following it was noted to be intact with three-vessel cord. The perineum and vagina were inspected and noted to have a second-degree perineal laceration that was repaired in the usual fashion with 3-0 Vicryl Rapide. EBL was 400 cc. Patient and tolerated delivery well. Presentation: MARYJANE Placental Delivery Description: Spontaneous Placenta Disposition: [facility] Cord Vessel Description: 3 Vessels Cord Entanglement: None Estimated Blood Loss: 400 Infant A gender: Female Episiotomy Description: None Laceration: Perineal Extension/lac, 2nd degree Medications given after delivery: IV Pitocin Complications: None Multi Select Codes - Urinary/Genital Urinary/Genital CPT Codes: 05656 Vaginal Delivery [facility]
[2020-04-02] VITALS (15 sets, daily range): BP systolic 96–121; BP diastolic 55–71; PULSE 78–109; RESP 16–18; TEMP 36.3–37.4; O2SAT 97–98
[2020-04-02] MEDS: 0.9% Saline Lock 10 ML Syringe IV (01:59)
[2020-04-02] MEDS: Naproxen 250 MG Tablet 500 MG PO ×3 (04:14→23:54)
--- NOTE | 2020-04-02 06:34 | PCM.PN.OB ---
Subjective: doing well no complaints pain controlled no CP SOB N V ambulating well tolerating po lochia moderate, going well - Physical Exam Vitals/I&O's: Vital Signs Temp Pulse Resp BP Pulse Ox 99.3 F H 88 16 100/61 98 04/02/20 03:46 04/02/20 03:46 04/02/20 03:46 04/02/20 03:46 04/02/20 00:39 Oxygen Delivery Method Room Air Weight: 175 lb 0.752 oz Body Mass Index (BMI) 26.6 Intake and Output for Last 24 Hours 03/31/20 04/01/20 04/02/20 23:59 23:59 23:59 Intake Total 1432.00 / 1432.00 333 / 333 Output Total 1000 / 1000 680 / 680 Balance 432.00 / 432.00 -347 / -347 General: Alert, Oriented x3 Microbiology Past 72 Hours 04/01/20 17:41 Mucosa - Nasopharyngeal Coronavirus COVID-19 PCR - Final Laboratory Results 04/01/20 15:30: WBC 11.0, RBC 4.07 L, Hgb 13.3, Hct 39.1, MCV 96.1, MCH 32.7 H, MCHC 34.0, RDW Std Deviation 47.2 H, RDW Coeff of Juan Luis 13.5, Plt Count 223, MPV 10.5, Immature Gran % (Auto) 0.500, Neut % (Auto) 73.3 H, Lymph % (Auto) 15.0 L, Converse % (Auto) 9.5, Eos % (Auto) 1.4, Baso % (Auto) 0.3, Absolute Neuts (auto) 8.1 H, Absolute Lymphs (auto) 1.65, Nucleated RBC % 0 04/01/20 15:30: Blood Type A POSITIVE, Antibody Screen NEGATIVE Current Medications Acetaminophen (Tylenol) 1,000 mg PO Q8H PRN PRN PRN Reason: Pain Score 1-3/10 Bisacodyl (Dulcolax) 10 mg RECTAL UD PRN PRN Reason: If no BM Dibucaine (Dibucaine) 1 applic TOPICAL TID PRN PRN; Protocol PRN Reason: Discomfort Hydrocortisone (Hytone) 1 applic TOPICAL TID PRN PRN; Protocol PRN Reason: Discomfort Methylergonovine Maleate (Methergine) 0.2 mg IM X1 PRN PRN Reason: Excess bleeding/uterine atony Naproxen (Naprosyn) 500 mg PO Q8H PRN PRN PRN Reason: Pain Score 1-3/10 Last Admin: 04/02/20 04:14 Dose: 500 mg Documented by: Ondansetron HCl (Zofran) 4 mg IV Q4H PRN PRN PRN Reason: Nausea Oxycodone HCl (Oxyir) 5 - 10 mg PO Q4H PRN PRN PRN Reason: Pain Score 4-10/10 Multivit/Folic Acid/Iron (Prenatabs Fa) 1 tablet PO DAILY CARLA Senna/Docusate Sodium (Senokot-S, Joyce-Colace) 1 - 2 tablet PO DAILY PRN PRN PRN Reason: Constipation Simethicone (Mylicon) 80 mg PO PCHS PRN PRN Reason: Indigestion/Stomach pain Sodium Chloride () 5 - 15 ml IV UD PRN PRN Reason: SALINE FLUSH Last Admin: 04/02/20 01:59 Dose: 10 ml Documented by: Medical Necessity - Tobacco Use Smoking Status: Never smoker Assessment/Plan All Active Problems (Last Reviewed 04/01/20 @ 12:53 by Andreea Amanda) (Acute) Supervision of other normal (Acute) Active labor at term (Resolved) Supervision of normal (Resolved) s/p PPD # 1 1. routine post delivery care 2. breast feeding- support given 3. rh positive 4. rubella immune
[2020-04-02] MEDS: Acetaminophen 500 MG Tablet 1000 MG PO ×2 (09:22→18:44)
[2020-04-02] MEDS: Senna/Docusate Sodium 1 Tablet PO (09:22)
[2020-04-02] MEDS: Prenatal Vits Tablet 1 TABLET PO (14:43)
[2020-04-03 00:12] VITALS: BP 103/68; PULSE 77
[2020-04-03 00:14] VITALS: BP 103/68; PULSE 77; RESP 18; TEMP 37.6
[2020-04-03 04:25] VITALS: BP 106/59; PULSE 85; RESP 18; TEMP 36.7
[2020-04-03 04:26] VITALS: BP 106/59; PULSE 85
--- NOTE | 2020-04-03 04:49 | PCM.PN.OB ---
Subjective: doing well no complaints pain controlled no CP SOB N V ambulating well tolerating po lochia moderate, going well - Physical Exam Vitals/I&O's: Vital Signs Temp Pulse Resp BP Pulse Ox 98.1 F 85 18 106/59 L 98 04/03/20 04:25 04/03/20 04:26 04/03/20 04:25 04/03/20 04:26 04/02/20 00:39 Oxygen Delivery Method Room Air Weight: 175 lb 0.752 oz Body Mass Index (BMI) 26.6 Intake and Output for Last 24 Hours 04/01/20 04/02/20 04/03/20 23:59 23:59 23:59 Intake Total 1432.00 / 1432.00 333 / 333 Output Total 1000 / 1000 680 / 680 Balance 432.00 / 432.00 -347 / -347 Microbiology Past 72 Hours 04/01/20 17:41 Mucosa - Nasopharyngeal Coronavirus COVID-19 PCR - Final Current Medications Acetaminophen (Tylenol) 1,000 mg PO Q8H PRN PRN PRN Reason: Pain Score 1-3/10 Last Admin: 04/02/20 18:44 Dose: 1,000 mg Documented by: Bisacodyl (Dulcolax) 10 mg RECTAL UD PRN PRN Reason: If no BM Dibucaine (Dibucaine) 1 applic TOPICAL TID PRN PRN; Protocol PRN Reason: Discomfort Hydrocortisone (Hytone) 1 applic TOPICAL TID PRN PRN; Protocol PRN Reason: Discomfort Methylergonovine Maleate (Methergine) 0.2 mg IM X1 PRN PRN Reason: Excess bleeding/uterine atony Naproxen (Naprosyn) 500 mg PO Q8H PRN PRN PRN Reason: Pain Score 1-3/10 Last Admin: 04/02/20 23:54 Dose: 500 mg Documented by: Ondansetron HCl (Zofran) 4 mg IV Q4H PRN PRN PRN Reason: Nausea Oxycodone HCl (Oxyir) 5 - 10 mg PO Q4H PRN PRN PRN Reason: Pain Score 4-10/10 Multivit/Folic Acid/Iron (Prenatabs Fa) 1 tablet PO DAILY CARLA Last Admin: 04/02/20 14:43 Dose: 1 tablet Documented by: Senna/Docusate Sodium (Senokot-S, Joyce-Colace) 1 - 2 tablet PO DAILY PRN PRN PRN Reason: Constipation Last Admin: 04/02/20 09:22 Dose: 2 tablet Documented by: Simethicone (Mylicon) 80 mg PO PCHS PRN PRN Reason: Indigestion/Stomach pain Sodium Chloride () 5 - 15 ml IV UD PRN PRN Reason: SALINE FLUSH Last Admin: 04/02/20 01:59 Dose: 10 ml Documented by: Medical Necessity - Tobacco Use Smoking Status: Never smoker Assessment/Plan All Active Problems (Last Reviewed 04/01/20 @ 12:53 by Andreea Amanda) (Acute) Supervision of other normal (Acute) Active labor at term (Resolved) Supervision of normal (Resolved) s/p PPD # 2 1. routine post delivery care 2. breast feeding- support given 3. rh positive 4. rubella immune
--- NOTE | 2020-04-03 04:50 | DCINST_ITS ---
Discharge Diet: No Restrictions Discharge Activity: Return to Normal Activity, May not drive while taking narcotic pain medications., May Shower May resume sexual activity in: 4-6 weeks Call your doctor if your incision/area has: Continuous Slow Oozing, Sudden Increased Bleeding, Increased Pain/ Swelling, Increased Redness, Foul Smelling Discharge Additional Instructions: If you experience any of the following, contact your healthcare provider. * Bleeding that soaks a pad every hour for 2 hours * Fever 100.4 or higher * Unrelieved incision or abdominal pain * Swelling, redness, discharge or bleeding from your incision or episiotomy site * Your incision begins to separate * Problems urinating (including inability to urinate or burning while urinating). * Visual changes * Severe headache * Flu-like symptoms * Pain or redness in one of both of your breasts * Pain, warmth, tenderness or swelling in your legs, especially the calf area * Frequent nausea and vomiting * Symptoms of depression or anxiety If you experience any of the following, call 911 or go to the nearest Emergency Room. * Chest pain * Problems breathing * Seizure activity * Partial or complete paralysis of a body part, slurred speech, weakness or drooping of the face, or a sudden inability to walk or hold your balance Allergies/Adverse Reactions: Allergies amoxicillin Allergy (Mild, Verified 04/01/20 15:25) Rash Medications to take at Discharge prenat.vits,fritz,[id number] 1 tab PO QDAY 12/28/17 Please Follow Up With: Linette Jacobson MD - [phone] When: Call to make an appointment with your doctor in 6 weeks. If you had elevated Blood pressure or 4th degree laceration you will need to be seen in 2 weeks. Primary Care Physician: Care Physician,No Primary [Primary Care Provider] - Test Results: Test results from this visit will be discussed in further detail at your follow- up appointment, if applicable.
--- NOTE | 2020-04-03 04:50 | PCM.DCVAG ---
Discharge Diet: No Restrictions Discharge Activity: Return to Normal Activity, May not drive while taking narcotic pain medications., May Shower May resume sexual activity in: 4-6 weeks Call your doctor if your incision/area has: Continuous Slow Oozing, Sudden Increased Bleeding, Increased Pain/ Swelling, Increased Redness, Foul Smelling Discharge Additional Instructions: If you experience any of the following, contact your healthcare provider. Bleeding that soaks a pad every hour for 2 hours Fever 100.4 or higher Unrelieved incision or abdominal pain Swelling, redness, discharge or bleeding from your incision or episiotomy site Your incision begins to separate Problems urinating (including inability to urinate or burning while urinating). Visual changes Severe headache Flu-like symptoms Pain or redness in one of both of your breasts Pain, warmth, tenderness or swelling in your legs, especially the calf area Frequent nausea and vomiting Symptoms of depression or anxiety If you experience any of the following, call 911 or go to the nearest Emergency Room. Chest pain Problems breathing Seizure activity Partial or complete paralysis of a body part, slurred speech, weakness or drooping of the face, or a sudden inability to walk or hold your balance Allergies/Adverse Reactions: Allergies amoxicillin Allergy (Mild, Verified 04/01/20 15:25) Rash Medications to take at Discharge prenat.vits,fritz,[id number]-mrpho 1 tab PO QDAY 12/28/17 Please Follow Up With: Linette Jacobson MD - [phone] When: Call to make an appointment with your doctor in 6 weeks. If you had elevated Blood pressure or 4th degree laceration you will need to be seen in 2 weeks. Primary Care Physician: Care Physician,No Primary [Primary Care Provider] - Test Results: Test results from this visit will be discussed in further detail at your follow-up appointment, if applicable.
[2020-04-03 08:00] VITALS: BP 119/72; PULSE 92; RESP 16; TEMP 36.6
[2020-04-03] MEDS: Senna/Docusate Sodium 1 Tablet PO (08:01)
[2020-04-03] MEDS: Prenatal Vits Tablet 1 TABLET PO (08:02)
[2020-04-03] MEDS: Naproxen 250 MG Tablet 500 MG PO (08:07)
[2020-04-03 08:10] VITALS: BP 119/72; PULSE 96
== END 2020-04-03 10:50 | disposition home or self-care (01) | DRG 807 ==
LOC: WPOUT 17:24 → WP 17:24
PROVIDERS: Admitting Provider Obstetrics & Gynecology; Referring Provider Obstetrics & Gynecology; Visit Provider Obstetrics & Gynecology
DX: O70.1 Second degree perineal laceration during delivery (principal); Z37.0 Single live birth; Z3A.39 39 weeks gestation of pregnancy
CPT/HCPCS: 59025; 59050; 85025; 86850; 86900; 86901; 87635; 99218; G2023; J7120; A4216; G0378; U0004

== ENCOUNTER → 2023-03-02 | Outpatient (CLI) | payer OTHER, SELFPAY ==
[2023-03-09 17:07] LABS: HPV APTIMA, High Risk Negative (Negative)
== END | disposition home or self-care (01) ==
PROVIDERS: Visit Provider Obstetrics & Gynecology
DX: Z12.4 Encounter for screening for malignant neoplasm of cervix (principal)
CPT/HCPCS: 87624; 88175; G0145

== ENCOUNTER → 2024-03-04 | Outpatient (CLI) | payer OTHER, SELFPAY | END | disposition home or self-care (01) | LOC: LABSPEC 15:26 | PROVIDERS: Referring Provider Obstetrics & Gynecology; Visit Provider Obstetrics & Gynecology | DX: N89.8 Other specified noninflammatory disorders of vagina (principal) | CPT/HCPCS: 87070; 87077; 87205 ==

== ENCOUNTER → 2025-03-07 | Outpatient (CLI) | payer OTHER, SELFPAY | END | disposition home or self-care (01) | LOC: LABSPEC 15:26 | PROVIDERS: Referring Provider Obstetrics & Gynecology; Visit Provider Obstetrics & Gynecology | DX: Z12.4 Encounter for screening for malignant neoplasm of cervix (principal); N89.8 Other specified noninflammatory disorders of vagina | CPT/HCPCS: 87086; 87088; 87186; 87624; 88175; G0145 ==